=== PATIENT | male | born 1990 | race Caucasian/White ===

== ENCOUNTER 2019-04-17 21:56 | Emergency (ER) | payer OTHER ==
[2019-04-17 22:05] VITALS: TEMP 97.8
--- NOTE | 2019-04-17 22:49 | XR ---
EXAMINATION TYPE: XR chest 2V DATE OF EXAM: 04/17/2019 COMPARISON: September 05, 2008 HISTORY: Aspiration TECHNIQUE: 2 views FINDINGS: There is some thoracic kyphotic deformity. There is no definite heart failure nor confluent pneumonic infiltrate. Heart size appears normal. There is no pleural effusion. Exam is limited by lo rdotic positioning. IMPRESSION: Limited exam. No active cardiopulmonary disease.
--- NOTE | 2019-04-17 23:23 | ED ---
General Adult HPI - General Chief complaint: Recheck/Abnormal Lab/Rx Stated complaint: Altered Mental Status Time Seen by Provider: 04/17/19 22:06 Source: EMS Mode of arrival: EMS Limitations: no limitations - History of Present Illness Initial comments: Patient is a 29-year-old male with history of quadriplegic cerebral palsy presenting to the emergency department with a chief complaint of a possible choking episode. Mother reports the patient typically takes trazodone prior to going to bed. Today he took the trazodone about 2 hours prior to ED arrival with male. Mother reports about an hour after the patient had developed a gagging episode and turned pale for about 3-5 minutes. Afterwards mom states she lifted the patient up and he vomited all the male. Mother reports the patient had gradually returned back to his baseline. Currently he is at his baseline. Mother reports no coughing or signs of gagging afterwards. Mother did not give the patient any food or drinks after that incident. - Related Data Allergies Allergy/AdvReac Type Severity Reaction Status Date / Time No Known Allergies Allergy Verified 04/17/19 22:05 Review of Systems ROS Statement: Those systems with pertinent positive or pertinent negative responses have been documented in the HPI. ROS Other: All systems not noted in ROS Statement are negative. Past Medical History Additional Past Medical History / Comment(s): CP History of Any Multi-Drug Resistant Organisms: None Reported Past Surgical History: Orthopedic Surgery Past Psychological History: No Psychological Hx Reported Smoking Status: Never smoker Past Alcohol Use History: None Reported Past Drug Use History: None Reported General Exam Limitations: no limitations General appearance: alert, in no apparent distress Head exam: Present: atraumatic, normal inspection Eye exam: Present: normal appearance Pupils: Present: normal accommodation ENT exam: Present: normal exam, normal oropharynx, mucous membranes moist Neck exam: Present: normal inspection, full ROM Respiratory exam: Present: normal lung sounds bilaterally. Absent: respiratory distress, wheezes, rales Cardiovascular Exam: Present: regular rate, normal rhythm, normal heart sounds Extremities exam: Present: normal inspection, normal capillary refill Back exam: Present: normal inspection Neurological exam: Present: alert Psychiatric exam: Present: normal affect, normal mood Skin exam: Present: warm, dry, intact, normal color Course Vital Signs 04/17/19 04/17/19 21:58 23:49 Temperature 97.8 F 97.8 F Pulse Rate 56 L 60 Respiratory 16 18 Rate Blood Pressure 142/92 120/82 O2 Sat by Pulse 96 97 Oximetry Medical Decision Making - Medical Decision Making Patient is a 29-year-old male, quadriplegic cerebral palsy presenting to the emergency department with a chief complaint of a possible choking episode. The patient had turned pale for about 3-5 minutes with an episode of gagging about one hour prior to eating. Once the patient was lifted he vomited and has return to his baseline afterwards. On exam no signs of respiratory distress. Patient is not coughing at this time. I concern for possible aspiration pneumonia. Patient appears at his baseline right now according to the mother. Chest x-ray and flu are unremarkable. Mother advised to return to emergency department if the patient begins to cough and develops a fever. I suspect the patient has suffered a choking episode because after he was able to vomit, he returned to baseline and the pallor resolved. Dr. Rosario also examined the patient and is in agreement with the treatment plan. Mother advised to follow with primary care. Strict return parameters were thoroughly discussed mother was understanding and agreeable. - Lab Data Lab Results 04/17/19 Range/Units 22:42 Influenza Type A RNA Not Detected (Not Detectd) Influenza Type B (PCR) Not Detected (Not Detectd) Disposition Clinical Impression: Choking episode Disposition: HOME SELF-CARE Condition: Stable Instructions (If sedation given, give patient instructions): Esophageal Foreign Body (ED) Additional Instructions: Please follow up with primary care. Please return to emergency department if symptoms worsen. Is patient prescribed a controlled substance at d/c from ED?: No Referrals: Emmanuel Cabrera DO [Primary Care Provider] - 1-2 days Time of Disposition: 23:23
[2019-04-17 23:51] VITALS: BP 120/82; PULSE 60; RESP 18
== END 2019-04-17 23:50 | disposition home or self-care (01) ==
LOC: EC 21:56
DX: R09.89 Other specified symptoms and signs involving the circulatory and respiratory systems (principal)
CPT/HCPCS: 71046; 87502; 99285

== ENCOUNTER 2019-11-06 20:38 | Emergency (ER) | payer OTHER ==
[2019-11-06 22:04] LABS: Appearance,Urine Clear (Clear); Bilirubin,Urine Negative (Negative); Blood,Urine Negative (Negative); Color,Urine Light Yellow; Glucose,Urine (UA) Negative (Negative); Ketones,Urine Negative (Negative); Leukocyte Esterase,Urine Negative (Negative); Nitrite,Urine Negative (Negative); Protein,Urine Negative (Negative); Specific Gravity,Urine 1.007 (1.001-1.035); Urobilinogen,Urine <2.0 mg/dL (<2.0)
--- NOTE | 2019-11-06 22:19 | XR ---
EXAMINATION TYPE: XR chest 1V DATE OF EXAM: 11/06/2019 COMPARISON: 04/17/2019 HISTORY: Syncope TECHNIQUE: FINDINGS: There is poor inspiration with elevation of the right diaphragm. There is some thoracic kyp hotic deformity. There is no pleural effusion. There is some thoracolumbar levoscoliotic deformity. T here appears to be some infiltrate and atelectasis medial aspect right upper lobe similar to old exam . Heart size is normal. IMPRESSION: There is some chronic infiltrate or atelectasis right upper lobe similar to old exam. No heart failure seen. Chronic right diaphragm elevation unchanged.
--- NOTE | 2019-11-06 22:49 | ED ---
General Adult HPI - General Chief complaint: Syncope Stated complaint: Syncope Time Seen by Provider: 11/06/19 21:22 Source: family Mode of arrival: wheelchair Limitations: altered mental status, physical limitation - History of Present Illness Initial comments: Patient is a 29-year-old male with history of quadriplegic cerebral palsy, nonverbal presenting to emergency Department with chief complaint of passing out. The caregiver states she was given the patient a shower when he suddenly "felt limp" and caused him to fall forward. He states he "passed out" for approximately 5 minutes with no apparent postictal state. She denies any repetitive myoclonic or tonic clonic movements. Mother states there is no previous history of syncopal episodes or seizures. Caregiver states there is no episodes of vomiting afterwards. Mother and caregiver state the patient is otherwise acting at his baseline. Caregiver denies any change of color in the a pparent syncopal episode. She denies any trauma after patient had a syncopal episode. - Related Data Home Medications Medication Instructions Recorded Confirmed Cetirizine HCl [Zyrtec] 10 mg PO HS 11/06/19 11/06/19 Glycopyrrolate [Robinul] 1 mg PO BID 11/06/19 11/06/19 Omeprazole 20 mg PO HS 11/06/19 11/06/19 traZODone HCL 100 mg PO HS 11/06/19 11/06/19 Allergies Allergy/AdvReac Type Severity Reaction Status Date / Time No Known Allergies Allergy Verified 11/06/19 23:30 Review of Systems ROS Statement: Those systems with pertinent positive or pertinent negative responses have been documented in the HPI. ROS Other: All systems not noted in ROS Statement are negative. Past Medical History Additional Past Medical History / Comment(s): CP History of Any Multi-Drug Resistant Organisms: None Reported Past Surgical History: Orthopedic Surgery Past Psychological History: No Psychological Hx Reported Smoking Status: Never smoker Past Alcohol Use History: None Reported Past Drug Use History: None Reported General Exam Limitations: altered mental status, physical limitation General appearance: alert, in no apparent distress Head exam: Present: atraumatic, normal inspection. Absent: normocephalic Eye exam: Present: normal appearance, PERRL, EOMI Pupils: Present: normal accommodation ENT exam: Present: normal exam, normal oropharynx, mucous membranes moist, TM's normal bilaterally, normal external ear exam Neck exam: Present: normal inspection, full ROM. Absent: tenderness Respiratory exam: Present: normal lung sounds bilaterally. Absent: respiratory distress, wheezes, rales Cardiovascular Exam: Present: regular rate, normal rhythm, normal heart sounds GI/Abdominal exam: Present: soft. Absent: distended, tenderness Extremities exam: Present: normal inspection, full ROM, normal capillary refill, other (+2 ulnar and radial pulses bilaterally.) Back exam: Present: normal inspection, full ROM. Absent: tenderness Neurological exam: Present: alert Psychiatric exam: Present: normal affect, normal mood Skin exam: Present: warm, dry, intact, normal color Course Vital Signs 11/06/19 11/06/19 11/06/19 21:00 21:28 22:59 Temperature 97.6 F Pulse Rate 52 L 62 Pulse Rate [ 54 L Electrician Supervisor ] Respiratory 18 16 Rate Blood Pressure 137/92 122/90 O2 Sat by Pulse 96 97 Oximetry 11/07/19 00:13 Temperature 97.8 F Pulse Rate 67 Pulse Rate [ Electrician Supervisor ] Respiratory 18 Rate Blood Pressure 122/72 O2 Sat by Pulse 97 Oximetry EKG Findings - EKG Comments: EKG Findings:: Right axis deviation with ST elevation. Suspecting early repolarization. Ventricular rate 54, WA 134, QRS 78, QTC 375. Medical Decision Making - Medical Decision Making Patient is a 29-year-old male with history of quadriplegic cerebral palsy presenting to emergency Department with chief complaint of passing out. On physical exam patient appears to be at baseline according to the mother and caregiver. Chest x-ray reveals chronic infiltrate or atelectasis in the right upper lobe similar to old exam. No heart failure seen. Chronic right diaphragm elevation and unchanged. EKG did show early repolarization with ST elevations in V5 and V6. I spoke with Dr. Romero regarding the EKG. He suggested a full cardiac workup. CBC, CMP, coags unremarkable. Negative troponin. This appears to be a syncopal episode and not a seizure. Patient is to follow-up with the primary care within next few days. Return parameters were thoroughly discussed with mother was understanding and agreeable. Case discussed with physician. - Lab Data Result diagrams: 11/06/19 22:54 11/06/19 22:54 Lab Results 11/06/19 11/06/19 11/06/19 Range/Units 21:57 22:54 22:54 WBC 8.7 (3.8-10.6) k/uL RBC 5.68 (4.30-5.90) m/uL Hgb 17.8 H (13.0-17.5) gm/dL Hct 52.3 (39.0-53.0) % MCV 92.1 (80.0-100.0) fL MCH 31.4 (25.0-35.0) pg MCHC 34.1 (31.0-37.0) g/dL RDW 12.1 (11.5-15.5) % Plt Count 253 (150-450) k/uL Neutrophils % 76 % Lymphocytes % 17 % Monocytes % 5 % Eosinophils % 1 % Basophils % 0 % Neutrophils # 6.7 (1.3-7.7) k/uL Lymphocytes # 1.5 (1.0-4.8) k/uL Monocytes # 0.4 (0-1.0) k/uL Eosinophils # 0.1 (0-0.7) k/uL Basophils # 0.0 (0-0.2) k/uL PT 10.3 (9.0-12.0) sec INR 1.0 (<1.2) APTT 24.9 (22.0-30.0) sec Sodium (137-145) mmol/L Potassium (3.5-5.1) mmol/L Chloride (98-107) mmol/L Carbon Dioxide (22-30) mmol/L Anion Gap mmol/L BUN (9-20) mg/dL Creatinine (0.66-1.25) mg/dL Est GFR (CKD-EPI)AfAm (>60 ml/min/1.73 sqM) Est GFR (CKD-EPI)NonAf (>60 ml/min/1.73 sqM) Glucose (74-99) mg/dL Calcium (8.4-10.2) mg/dL Magnesium (1.6-2.3) mg/dL Total Bilirubin (0.2-1.3) mg/dL AST (17-59) U/L ALT (4-49) U/L Alkaline Phosphatase (38-126) U/L Troponin I (0.000-0.034) ng/mL Total Protein (6.3-8.2) g/dL Albumin (3.5-5.0) g/dL Urine Color Light Yellow Urine Appearance Clear (Clear) Urine pH 7.0 (5.0-8.0) Ur Specific [place] 1.007 (1.001-1.035) Urine Protein Negative (Negative) Urine Glucose (UA) Negative (Negative) Urine Ketones Negative (Negative) Urine Blood Negative (Negative) Urine Nitrite Negative (Negative) Urine Bilirubin Negative (Negative) Urine Urobilinogen <2.0 (<2.0) mg/dL Ur Leukocyte Esterase Negative (Negative) 11/06/19 11/06/19 Range/Units 22:54 22:54 WBC (3.8-10.6) k/uL RBC (4.30-5.90) m/uL Hgb (13.0-17.5) gm/dL Hct (39.0-53.0) % MCV (80.0-100.0) fL MCH (25.0-35.0) pg MCHC (31.0-37.0) g/dL RDW (11.5-15.5) % Plt Count (150-450) k/uL Neutrophils % % Lymphocytes % % Monocytes % % Eosinophils % % Basophils % % Neutrophils # (1.3-7.7) k/uL Lymphocytes # (1.0-4.8) k/uL Monocytes # (0-1.0) k/uL Eosinophils # (0-0.7) k/uL Basophils # (0-0.2) k/uL PT (9.0-12.0) sec INR (<1.2) APTT (22.0-30.0) sec Sodium 138 (137-145) mmol/L Potassium 4.5 (3.5-5.1) mmol/L Chloride 99 (98-107) mmol/L Carbon Dioxide 29 (22-30) mmol/L Anion Gap 10 mmol/L BUN 9 (9-20) mg/dL Creatinine 0.64 L (0.66-1.25) mg/dL Est GFR (CKD-EPI)AfAm >90 (>60 ml/min/1.73 sqM) Est GFR (CKD-EPI)NonAf >90 (>60 ml/min/1.73 sqM) Glucose 94 (74-99) mg/dL Calcium 10.0 (8.4-10.2) mg/dL Magnesium 1.8 (1.6-2.3) mg/dL Total Bilirubin 0.4 (0.2-1.3) mg/dL AST 28 (17-59) U/L ALT 20 (4-49) U/L Alkaline Phosphatase 89 (38-126) U/L Troponin I <0.012 (0.000-0.034) ng/mL Total Protein 8.5 H (6.3-8.2) g/dL Albumin 4.7 (3.5-5.0) g/dL Urine Color Urine Appearance (Clear) Urine pH (5.0-8.0) Ur Specific [place] (1.001-1.035) Urine Protein (Negative) Urine Glucose (UA) (Negative) Urine Ketones (Negative) Urine Blood (Negative) Urine Nitrite (Negative) Urine Bilirubin (Negative) Urine Urobilinogen (<2.0) mg/dL Ur Leukocyte Esterase (Negative) Disposition Clinical Impression: Syncopal episodes Disposition: HOME SELF-CARE Condition: Stable Instructions (If sedation given, give patient instructions): Syncope (DC) Additional Instructions: Follow-up with primary care. Return to emergency department if symptoms worsen. Is patient prescribed a controlled substance at d/c from ED?: No Referrals: Emmanuel Cabrera DO [Primary Care Provider] - 1-2 days Time of Disposition: 23:45
[2019-11-06 23:06] LABS: Basophils % (A) 0 %; Eosinophils # (A) 0.1 k/uL (0-0.7); Eosinophils % (A) 1 %; HCT 52.3 % (39.0-53.0); HGB 17.8 gm/dL (13.0-17.5); Lymphocytes # (A) 1.5 k/uL (1.0-4.8); Lymphocytes % (A) 17 %; MCH 31.4 pg (25.0-35.0); MCHC 34.1 g/dL (31.0-37.0); MCV 92.1 fL (80.0-100.0); Mean Platelet Volume 8.4; Monocytes # (A) 0.4 k/uL (0-1.0); Monocytes % (A) 5 %; Neutrophils # (A) 6.7 k/uL (1.3-7.7); Neutrophils % (A) 76 %; Platelet Count 253 k/uL (150-450); RBC 5.68 m/uL (4.30-5.90); RDW 12.1 % (11.5-15.5); WBC 8.7 k/uL (3.8-10.6)
[2019-11-06 23:15] LABS: ALT 20 U/L (4-49); AST 28 U/L (17-59); African American GFR (CKD) >90 (>60 ml/min/1.73 sqM); Albumin 4.7 g/dL (3.5-5.0); Alkaline Phosphatase 89 U/L (38-126); Anion Gap 10 mmol/L; Blood Urea Nitrogen 9 mg/dL (9-20); Carbon Dioxide 29 mmol/L (22-30); Chloride 99 mmol/L (98-107); Glucose 94 mg/dL (74-99); Magnesium 1.8 mg/dL (1.6-2.3); Non-African American GFR(CKD) >90 (>60 ml/min/1.73 sqM); Potassium 4.5 mmol/L (3.5-5.1); Sodium 138 mmol/L (137-145); Total Bilirubin 0.4 mg/dL (0.2-1.3); Total Protein 8.5 g/dL (6.3-8.2)
[2019-11-06 23:21] LABS: Partial Thromboplastin Time 24.9 sec (22.0-30.0); Prothrombin Time 10.3 sec (9.0-12.0)
[2019-11-07 00:14] VITALS: BP 122/72; PULSE 67; RESP 18; TEMP 97.8
== END 2019-11-07 00:14 | disposition home or self-care (01) ==
LOC: EC 20:38
DX: R55 Syncope and collapse (principal); Z86.69 Personal history of other diseases of the nervous system and sense organs
CPT/HCPCS: 36415; 71045; 80053; 81003; 83735; 84484; 85025; 85610; 85730; 93005; 99284